=== PATIENT | male | born 1985 | race Caucasian/White ===

== ENCOUNTER 2021-05-18 19:11 | Emergency (ER) | payer OTHER, SELFPAY ==
--- NOTE | ~2021-05-18 | XR_ITS ---
EXAMINATION: XR wrist LT 2V INDICATION: Post reduction TECHNIQUE: Two views of the left wrist are obtained. COMPARISON: 1927 hours FINDINGS: Again seen is a comminuted intra-articular fracture of the distal radius. Dorsal angulation has been partially reduced. A splint has been applied. An ulnar styloid avulsion is noted. IMPRESSION: 1. Partially reduced and splinted comminuted intra-articular fracture of the distal radius. Reviewed, dictated and finalized at location F. MASTER IMPRESSION: 1. Partially reduced and splinted comminuted intra-articular fracture of the di stal radius.
--- NOTE | ~2021-05-18 | CT_ITS ---
EXAMINATION: CT facial bones wo con DATE: 05/18/2021 22:56 INDICATION: Left facial pain, initial encounter TECHNIQUE: Computed tomography (CT) of the facial bones and maxillofacial region was performed withou t intravenous contrast. The dose-length product (DLP) was 288.72 mGy-cm. Automated exposure control a nd iterative reconstruction technique were employed. COMPARISON: None. FINDINGS: There is an acute minimally displaced fracture of the lateral wall of the left orbit. There is a nondisplaced fracture in the inferior wall of the left orbit. There are comminuted and displace d fractures in the anterior and lateral perez of the left maxillary sinus. There is a segmental fract ure of the left zygomatic arch with angulation. There is near complete opacification of the left maxi llary sinus. The visualized portions of the cervical spine are unremarkable. IMPRESSION: 1. Multiple left-sided orbital and facial bone fractures as detailed above. Reviewed, dictated and finalized at location F. OLOGY INSTRUCTOR
--- NOTE | ~2021-05-18 | CT_ITS ---
EXAMINATION: CT brain wo con INDICATION: Head injury COMPARISON: None TECHNIQUE: Standard unenhanced head CT. The dose-length product (DLP) was 605.33 mGy-cm. The mA was a djusted according to patient size. Iterative reconstruction technique was employed. FINDINGS: There is hemorrhagic opacification of the left maxillary sinus with a partially imaged frac ture of the lateral wall. There is also a fracture of the lateral wall of the left orbit. There is no intracranial hemorrhage, acute infarction, or abnormal mass lesion. The ventricles are normal. There is no abnormal mass effect or midline shift. The guillory-white matter differentiation is normal. The ba sandip cisterns are patent. IMPRESSION: 1. No acute intracranial abnormality. 2. Fractures of the lateral wall of the left orbit and lateral wall of the left maxillary sinus. Dedi cated facial bone CT is recommended. Reviewed, dictated and finalized at location F. CH AND BRACELET MAKER IMPRESSION: 1. No acute intracranial abnormality. 2. Fractures of the lateral wall of the left orbit and lateral wall of the left maxillary sinus. Dedicated facial bone CT is recommended.
--- NOTE | ~2021-05-18 | XR_ITS ---
EXAMINATION: XR wrist LT 2V INDICATION: Left wrist pain, initial encounter TECHNIQUE: Two views of the left wrist are obtained. COMPARISON: None available FINDINGS: There is an acute, traumatic, closed, comminuted intra-articular fracture of the distal rad ius. There are approximately 15 degrees of dorsal angulation at the fracture site. There appears to b e an avulsion fracture of the ulnar styloid. No additional acute osseous findings are evident. Wrist soft tissue swelling is present. IMPRESSION: 1. Comminuted intra-articular fracture of the distal radius. 2. Likely ulnar styloid avulsion. Reviewed, dictated and finalized at location F. PICKER
[2021-05-18 19:16] VITALS: BP 165/87; PULSE 119; RESP 20; TEMP 36.9; O2SAT 95
--- NOTE | 2021-05-18 20:20 | ED.UPPEXIN ---
HPI - Extremity Injury (Upper) General Chief Complaint: Fall Stated Complaint: L wrist, head injury Time Seen by Provider: 05/18/21 20:12 Source: patient Mode of arrival: ambulatory Limitations: no limitations History of Present Illness HPI narrative: Patient is a 35-year-old male complaining of left wrist pain, 9 out of 10, dull, worse with palpation and movement after he slipped on ice today landing on his left wrist. Patient states that he did hit his left jaw but his pain is mild, able to open his mouth without difficulty. Patient denies any head, neck, back or any other extremity pain/injury. Patient denies any symptoms prior to the fall. Related Data Allergies Allergy/AdvReac Type Severity Reaction Status Date / Time Honey Bee Allergy Unknown Unknown Uncoded 05/18/21 19:18 Review of Systems Review of Systems: Per HPI All systems reviewed & are unremarkable except as noted in HPI and below [facility] Social History Social History (Updated 03/31/19 @ 16:06 by CARINA Oliveros) Smoking status: Never smoker Comments Past medical history: None Family history: Unknown Social history: Positive for smoker, no EtOH or drug use Exam Const: General: cooperative, healthy appearing, comfortable, no acute distress, well developed, alert and awake; No confusion Orientation/consciousness: oriented to person, oriented to place, oriented to time, patient oriented x3 and No confusion Limitations: no limitations HENMT: Head: normal to inspection, normocephalic and atraumatic Ears: hearing grossly normal bilaterally, TM normal on the right and TM normal on the left General nose exam: Normal external nose present, Normal nares present and No nasal discharge present Face and sinus: normal facial exam Mouth: Yes Normal oral and palatal mucosa present, Yes lip normal, Yes tongue normal and Yes oropharynx normal Throat: posterior oropharynx normal, tonsils normal and uvula midline Eyes: General: appearance normal, both eyes and all related structures Pupils: Equal, round and reactive pupils present EOM: EOMs intact bilaterally Neck: Neck: normal visual inspection, full ROM, no lymphadenopathy and no meningeal signs Chest: Chest palpation & inspection: normal inspection of the chest Resp: Effort & Inspection: normal respiratory effort, able to speak in complete sentences, no respiratory distress and not tachypneic Auscultation: clear to auscultation bilaterally, no crackles, no rales, no rhonchi and no wheezes Cardio: Rate: regular rate Rhythm: regular rhythm GI: Inspection: normal to inspection GI Palp: No abdominal tenderness, Yes Soft to palpation, No Tenderness to palpation present (GI), No Guarding due to palpation present (GI), No Rigid due to palpation and No Rebound tenderness present Auscultation: normal bowel sounds : General: Yes no CVA tenderness Back/Spine/Pelvis: Back: no CVA tenderness Skin: General skin exam: normal color, no rashes or lesions noted, elasticity normal and turgor normal Neuro: General: oriented to person, oriented to place, oriented to time, patient oriented x3, tone normal, moves all extremities, Normal light touch and pain sensation, no meningeal signs, no focal motor deficits, CN's II-XI intact bilaterally and No confusion Cranial nerves: Yes Equal, round and reactive pupils present Speech: No Abnormal speech present Sensory Exam: No Sensory deficit (Neuro) Extrem: Other: Left wrist deformity, decreased range of motion due to pain, pain on palpation, neurovascular is intact Psych: Appearance: grossly normal and well kempt Mental Status: mental status grossly normal Speech and movement: Normal speech and movement present Affect: normal affect Attitude: cooperative Thought process: Normal thought process present Thought content: Yes Normal thought content present Insight: Good insight present (Psych) Judgement: Good judgement present (Psych) Course Vital Signs Vital signs: Vital S
[2021-05-18] MEDS: KETOROLAC 30 MG/ML VIAL (*BKC) IM (21:11)
[2021-05-18] MEDS: diazePAM (*CRX) 5 MG TABLET PO (21:12)
[2021-05-18] MEDS: HYDROcodone/acetaminophen (*CRX) 5-325 MG TABLET 2 TAB PO (21:12)
--- NOTE | 2021-05-18 21:36 | PC.NURSE ---
Patient told this RN you have a nice rack Then proceeded to grab breast. Patient informed about hospital policy and told not to do that again. Diffrent nurse took over care at this point.
[2021-05-18 23:23] VITALS: BP 133/83; PULSE 18; RESP 18; TEMP 36.3; O2SAT 98
[2021-05-18 23:30] VITALS: BP 141/92; PULSE 88; RESP 12; TEMP 36.7; O2SAT 98
[2021-05-19] MEDS: HYDROcodone/acetaminophen (*CRX) 5-325 MG TABLET 1 TAB PO (00:55)
[2021-05-19 00:56] VITALS: BP 120/100; PULSE 82; RESP 18; TEMP 36.6; O2SAT 98
== END 2021-05-19 00:59 | disposition home or self-care (01) ==
PROVIDERS: Emergency Provider Emergency Medicine
DX: S52.572A Other intraarticular fracture of lower end of left radius, initial encounter for closed fracture (principal); S02.842A Fracture of lateral orbital wall, left side, initial encounter for closed fracture; S02.40DA Maxillary fracture, left side, initial encounter for closed fracture; S02.32XA Fracture of orbital floor, left side, initial encounter for closed fracture; S02.40FA Zygomatic fracture, left side, initial encounter for closed fracture; W00.0XXA Fall on same level due to ice and snow, initial encounter
CPT/HCPCS: 25605; 70450; 70486; 73100; 96374; 99285; A4565; A9270; J1885

== ENCOUNTER 2021-09-18 17:16 | Emergency (ER) | payer SELFPAY ==
[2021-09-18 17:26] VITALS: BP 113/73; PULSE 96; RESP 16; TEMP 37.8; O2SAT 99
--- NOTE | 2021-09-18 17:40 | ED.URI ---
HPI - URI/Sore Throat General Chief Complaint: Upper Respiratory Infection Stated Complaint: sore throat Time Seen by Provider: 09/18/21 17:40 History of Present Illness HPI Narrative: 35-year-old male presented for complaint of sore throat for 1 week. Endorses his tongue feels swollen, denies mild sinus drainage. 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 He denies shortness of breath, wheezing, nausea, vomiting, fevers or chills. Denies sick contacts. Related Data Allergies Allergy/AdvReac Type Severity Reaction Status Date / Time Honey Bee Allergy Unknown Unknown Uncoded 09/18/21 17:33 Review of Systems Review of Systems: CONSTITUTIONAL: Denies body aches, fever, chills, or sweats. EYES: Denies visual changes, redness, or discharge. ENT: Denies otalgia. CARDIOVASCULAR: Denies chest pain, palpitations, or edema. RESPIRATORY: Denies dyspnea. GASTROINTESTINAL: Denies abdominal pain, nausea, vomiting, or diarrhea. SKIN: Denies rash, itching, or wounds. MUSCULOSKELETAL: Denies back pain, joint pain, or myalgia. NEUROLOGIC: Denies headache PMFSH Social History Social History Smoking status: Never smoker Exam Narrative: GENERAL: Well-appearing EYES: conjunctivae clear ENT: Mucous membranes moist. TM pearly guillory with normal light reflex bilaterally; no tragal tenderness. Oropharynx erythematous without lesions. No drooling, no hoarseness, no trismus, uvula midline. No tripod positioning, hot potato voice, or soft palate swelling. NECK: Supple. No lymphadenopathy CHEST: Clear to auscultation, breath sounds equal. HEART: Regular rate and rhythm. No murmur heard. SKIN: Warm, dry, no rash. NEURO: Alert and oriented x3. Course Course Emergency Course: Patient is aware of diagnosis, understands and agrees to treatment plan. Anticipatory guidance given. Patient agrees to follow-up as directed and is aware of reasons to seek care at the emergency department. Portions of this record may have been created with voice recognition software Level of Care: Express Care Visit Vital Signs Vital signs: Vital Signs Temperature 100.1 F H 09/18/21 17:26 Pulse Rate 96 09/18/21 17:26 Respiratory Rate 16 09/18/21 17:26 Blood Pressure 113/73 09/18/21 17:26 Pulse Oximetry 99 09/18/21 17:26 Oxygen Delivery Room Air 09/18/21 17:26 Temperature 100.1 F H 09/18/21 17:26 Pulse Rate 96 09/18/21 17:26 Respiratory Rate 16 09/18/21 17:26 Blood Pressure 113/73 09/18/21 17:26 Pulse Oximetry 99 09/18/21 17:26 Oxygen Delivery Room Air 09/18/21 17:26 MDM - URI/Sore Throat MDM Narrative Medical decision making narrative: negative strep result reviewed with pt. Advise supportive treatments. Patient is appropriate for outpatient treatment and follow-up. Differential Diagnosis Differential diagnosis: Likely upper respiratory infection, viral infection and pharyngitis Lab Data Labs: Strep Screen Presumptive Negative *(Reference Range: Negative)* Discharge Plan Discharge Clinical Impression: Pharyngitis Qualifiers: Pharyngitis/tonsillitis etiology: unspecified etiology Qualified Code(s): J02.9 - Acute pharyngitis, unspecified Patient Disposition: Home, Self-Care Condition: Stable Instructions: Antibiotic Form, Pharyngitis (ED) Additional Instructions: Rapid strep swab was negative today You will be notified in a few days if the culture comes back positive for strep, and appropriate antibiotics will be called in at that time. if symptoms are due to a viral illness, it is not treated with antibiotics. Viral symptoms can be present for up to 10-14 days. Recommend Flonase spray and Zyrtec for sinus congestion Tylenol 1000mg every 8 hours as needed for pain/fever Soft foods, cool liquids, warm tea. Gargle wi
== END 2021-09-18 18:10 | disposition home or self-care (01) ==
PROVIDERS: Emergency Provider Nurse Practitioner Family
DX: J02.9 Acute pharyngitis, unspecified (principal)
CPT/HCPCS: 87081; 87880; 99213; G0463

== ENCOUNTER 2021-10-16 08:38 | Emergency (ER) | payer SELFPAY ==
--- NOTE | ~2021-10-16 | XR_ITS ---
EXAMINATION: XR soft tissue neck INDICATION: Sore throat TECHNIQUE: Two views of the neck soft tissues are obtained. COMPARISON: 02/05/2005 FINDINGS: The neck soft tissues are radiographically unremarkable. The prevertebral soft tissues are normal. The cervical spine is normal. An impacted molar is noted. IMPRESSION: 1. Unremarkable neck soft tissues Reviewed, dictated and finalized at location B.
[2021-10-16 08:47] VITALS: BP 124/72; PULSE 85; RESP 16; TEMP 36.1; O2SAT 100
--- NOTE | 2021-10-16 08:47 | ED.URI ---
HPI - URI/Sore Throat General Chief Complaint: Upper Respiratory Infection Stated Complaint: sore throat Time Seen by Provider: 10/16/21 08:50 History of Present Illness HPI Narrative: 35-year-old male presented for complaint of throat pain for over 1 month. Was seen at [facility] 09/18 for the same complaint, negative strep at that time. Advised to f/u with PCP but has yet to establish. Endorses pain with swallowing solid foods, worse in the morning, rates 5/10. Has been using the supportive measures without significant improvement. Denies sinus congestion/drainage, wheezing, sob, fever or chills. Also c/o burning with urination for 3 days. Endorses unprotected sex but denies known exposure. Denies associated urethral discharge, lesions, hematuria, abdominal pain, nausea, or vomiting. Related Data Allergies Allergy/AdvReac Type Severity Reaction Status Date / Time Honey Bee Allergy Unknown Unknown Uncoded 10/16/21 08:44 Review of Systems Review of Systems: CONSTITUTIONAL: Denies body aches, fever, chills, or sweats. EYES: Denies visual changes, redness, or discharge. ENT: Denies rhinorrhea, congestion, or otalgia. CARDIOVASCULAR: Denies chest pain, palpitations, or edema. RESPIRATORY: Denies dyspnea. GASTROINTESTINAL: Denies abdominal pain, nausea, vomiting, or diarrhea. SKIN: Denies rash, itching, or wounds. MUSCULOSKELETAL: Denies back pain, joint pain, or myalgia. NEUROLOGIC: Denies headache PMFSH Social History Social History Smoking status: Never smoker Exam Narrative: GENERAL:well-appearing EYES: conjunctivae clear ENT: Mucous membranes moist. TMs pearly guillory with normal light reflex bilaterally; no tragal tenderness. Oropharynx erythematous without lesions, Tonsils enlarged and without exudate. No drooling, no hoarseness, no trismus, uvula midline. No tripod positioning, hot potato voice, or soft palate swelling. NECK: Supple. No lymphadenopathy CHEST: Clear to auscultation, breath sounds equal. No respiratory distress, speaks in full sentences. HEART: Regular rate and rhythm. No murmur heard. SKIN: Warm, dry, no rash. NEURO: Alert and oriented x3. Course Course Emergency Course: Patient is aware of diagnosis, understands and agrees to treatment plan. Anticipatory guidance given. Patient agrees to follow-up as directed and is aware of reasons to seek care at the emergency department. Portions of this record may have been created with voice recognition software Level of Care: Express Care Visit Vital Signs Vital signs: Vital Signs Temperature 97.0 F L 10/16/21 08:47 Pulse Rate 85 10/16/21 08:47 Respiratory Rate 16 10/16/21 08:47 Blood Pressure 124/72 10/16/21 08:47 Pulse Oximetry 100 10/16/21 08:47 Oxygen Delivery Room Air 10/16/21 08:47 Temperature 97.0 F L 10/16/21 08:47 Pulse Rate 85 10/16/21 08:47 Respiratory Rate 16 10/16/21 08:47 Blood Pressure 124/72 10/16/21 08:47 Pulse Oximetry 100 10/16/21 08:47 Oxygen Delivery Room Air 10/16/21 08:47 MDM - URI/Sore Throat MDM Narrative Medical decision making narrative: soft tissue neck xray negative, reviewed results with pt. Advised to f/u with pcp, ent/GI for further evaluation if symptoms persist. Rx steroid for tonsillitis. Patient also presenting with concern for STD. Urine specimen collected for GC, chlamydia, trich. Informed Pt will be contacted w/ results when they become available if they are positive. Discussed with patient that it takes up to 7 days for results of cultures to be released and explained that we may treat empirically at this time. Agreeable to treatment at this time. I have instructed the patient to return to the ER at any time if there are any new or worsening symptoms. The patient expressed understanding of and agreement with this plan. Advise supportive treatments. Patient is appropriate for outpatient treatment and fol
[2021-10-16] MEDS: cefTRIAXone 500 MG, LIDOCAINE HCL 1% LOCAL INJ 1 ML IM (09:38)
== END 2021-10-16 09:50 | disposition home or self-care (01) ==
PROVIDERS: Emergency Provider Nurse Practitioner Family
DX: J02.9 Acute pharyngitis, unspecified (principal); Z20.2 Contact with and (suspected) exposure to infections with a predominantly sexual mode of transmission
CPT/HCPCS: 70360; 81003; 87491; 87591; 87661; 96372; 99213; G0463; J0696

== ENCOUNTER 2022-01-22 16:49 | Emergency (ER) | payer SELFPAY ==
[2022-01-22 16:53] VITALS: BP 120/70; PULSE 89; RESP 16; TEMP 36.6; O2SAT 97
--- NOTE | 2022-01-22 16:53 | ED.SKABFB ---
HPI - Skin/Abscess/Foreign Bdy General Chief complaint: Skin/Abscess/Foreign Body Stated complaint: tick bite Time Seen by Provider: 01/22/22 16:59 Source: patient and RN notes reviewed Mode of arrival: ambulatory Limitations: no limitations History of Present Illness HPI narrative: 36-year-old male presents to the [facility] with a red area with a white choctaw around it that he noticed under his right arm. States this started last night. No treatment prior to arrival. Has acne on his back. No erythema edema surrounding area. One acne area was scratched, scab in please less than 0.5 cm. No bull's-eye rash noted. No bug bites. Related Data Allergies Allergy/AdvReac Type Severity Reaction Status Date / Time Honey Bee Allergy Unknown Unknown Uncoded 10/16/21 08:44 Review of Systems Review of Systems: All systems reviewed & are unremarkable except as noted in HPI and below Constitutional: Constitutional: Reports no additional constitutional complaints, Denies chills and Denies fever(s) Eyes: Eyes: Reports no additional eye complaints ENT: Reports system reviewed and no additional complaints, except as documented Cardiovascular: Cardiovascular: Reports no additional cardiovascular complaints Respiratory: Respiratory: Reports no additional respiratory complaints Gastrointestinal: Gastrointestinal: Reports no additional gastrointestinal complaints Musculoskeletal: Musculoskeletal: Reports no additional musculoskeletal complaints Integumentary/Breasts: Skin/Breast: Reports as per HPI Neurologic: Reports system reviewed and no additional complaints, except as documented Psychiatric: Psychiatric: Reports no additional psychiatric complaints Allergic/Immunologic: Allergic/Immunologic: Reports no additional allergic/immunologic complaints PMFSH Past Medical History Medical History (Updated 01/22/22 @ 20:37 by Annette Shipley APRN) Patient denies medical problems Surgical History Surgical History (Updated 01/22/22 @ 20:35 by Annette Shipley APRN) No pertinent past surgical history Social History Social History Smoking status: Never smoker Comments At the time of my signature, I reviewed and agree with the nursing past medical, surgical, social, and family history. There is no relevant family history pertinent to the patient complaint. Exam Const: General: healthy appearing, no acute distress, alert and well nourished Nutritional Appearance: well nourished Orientation/consciousness: patient oriented x3 Limitations: no limitations HENMT: Head: normal to inspection Ears: external ears normal Face/Nose/Sinus: Normal external nose present and Normal nares present Face and sinus: normal facial exam Mouth: Yes Normal oral and palatal mucosa present, Yes lip normal and Yes moist mucous membranes Throat: posterior oropharynx normal and uvula midline Eyes: General: appearance normal, both eyes and all related structures Conjunctivae: conjunctivae normal Pupils: Equal, round and reactive pupils present Neck: Neck: normal visual inspection, no lymphadenopathy and no meningeal signs Chest: Chest palpation & inspection: normal inspection of the chest Resp: Effort & Inspection: normal respiratory effort and no use of accessory muscles Auscultation: clear to auscultation bilaterally, no crackles, no rales, no rhonchi and no wheezes Cardio: Rate: regular rate Rhythm: regular rhythm GI: GI Palp: Yes Soft to palpation and No Tenderness to palpation present (GI) Skin: General skin exam: normal color Rashes: no rashes Wounds: no wounds Other: Red raise acne bumps on back and sides bilateral. No increased erythema. No bull's eye rash. Neuro: General: patient oriented x3, moves all extremities, no meningeal signs and no focal motor deficits Cranial nerves: Yes Equal, round and reactive pupils present Speech: normal speech Gait exam (Neuro): Normal gait
== END 2022-01-22 17:14 | disposition home or self-care (01) ==
PROVIDERS: Emergency Provider Nurse Practitioner
DX: L70.9 Acne, unspecified (principal)
CPT/HCPCS: 99213; G0463

== ENCOUNTER 2022-12-29 17:42 | Emergency (ER) | payer SELFPAY ==
--- NOTE | ~2022-12-29 | CT_ITS ---
EXAMINATION: CT brain wo con DATE: 12/29/2022 18:47 INDICATION: pain in head/dizzy . TECHNIQUE: Computed tomography (CT) of the head was performed without intravenous contrast. The mA wa s adjusted according to patient size. Iterative reconstruction technique was employed. The dose-lengt h product was 605.33 mGy-cm. COMPARISON: 05/18/2021. FINDINGS: No acute intracranial hemorrhage or extra-axial fluid collection. No hydrocephalus, mass, or herniation. No acute ischemic infarct. Unremarkable dural venous sinus attenuation. No acute osseous abnormality. Old left lateral orbital wall fracture. The aerated spaces are clear. IMPRESSION: No acute intracranial process. Reviewed, dictated and finalized at location K.
[2022-12-29 17:43] VITALS: BP 161/93; PULSE 95; RESP 18; TEMP 36.7; O2SAT 99
--- NOTE | 2022-12-29 18:02 | ED.ANXIETY ---
HPI - Anxiety General Chief Complaint: Anxiety Stated Complaint: anxiety Time Seen by Provider: 12/29/22 18:01 Source: patient Mode of arrival: ambulatory Limitations: no limitations History of Present Illness HPI narrative: Patient is a 37-year-old male who denies past medical hx who presents emergency department today ambulatory with a steady gait her parents cell for evaluation of a having increasing anxiety, feeling and numb sensation over his head, headache, and just feeling off. States he was worried about driving here today no fevers but make it. Denies any new medication changes. He did try to take Excedrin which did not help. He states that he has had headaches before after having a periorbital fracture around a year ago. He did follow-up with neurologist but did not do their recommendations. He denies any recent exposure to any illness or flu. He denies chest pain or shortness of breath. Denies nausea, vomiting melena, fever, chills, urinary symptoms, or any other symptoms. denies drug/alcohol or tobacco use. Related Data Allergies Allergy/AdvReac Type Severity Reaction Status Date / Time Honey Bee Allergy Unknown Unknown Uncoded 10/16/21 08:44 Review of Systems Review of Systems: CONSTITUTIONAL: Denies fever, chills, or sweats. EYES: Denies visual changes, redness, or discharge. ENT: Denies rhinorrhea, congestion, sore throat, or otalgia. CARDIOVASCULAR: Denies chest pain, palpitations, or edema. RESPIRATORY: Denies cough or dyspnea. GASTROINTESTINAL: Denies abdominal pain, nausea, vomiting, or diarrhea. GENITOURINARY: Denies dysuria or hematuria. SKIN: Denies rash or itching. MUSCULOSKELETAL: Denies back pain, joint pain, or myalgia. NEUROLOGIC:+ headache/dizziness, feeling numb sensation over his head. denies weakness. PSYCHIATRIC: +anxiety. denies depression. All systems reviewed & are unremarkable except as noted in HPI and below PMFSH Past Medical History Medical History Patient denies medical problems Surgical History Surgical History No pertinent past surgical history Social History Social History Smoking status: Never smoker Exam Narrative: GENERAL: Well-appearing, well-nourished, and in no acute distress. HEAD: Normocephalic, atraumatic. EYES: PERRLA and EOMI. ENT: Nares clear, no rhinorrhea or epistaxis. Mucous membranes moist. NECK: Supple. CHEST: Clear to auscultation. No respiratory distress. HEART: Regular rate and rhythm. No murmur heard. Normal peripheral pulses. ABDOMEN: Soft, nontender, nondistended, normal active bowel sounds. EXTREMITIES: Normal range of motion. No edema. SKIN: Warm, dry, no rash. NEURO: No focal deficits. Alert and oriented x3. CN II-XII grossly intact. UE and LE distal pulses, sensation, cap refill, temperature, patellar reflex and strength intact and equal bilaterally.?steady gait. negative Romberg PSYCH: Normal mood and affect. Course Vital Signs Vital signs: Vital Signs Temperature 98.1 F 12/29/22 17:43 Pulse Rate 95 12/29/22 17:43 Respiratory Rate 18 12/29/22 17:43 Blood Pressure 161/93 H 12/29/22 17:43 Pulse Oximetry 99 12/29/22 17:43 Oxygen Delivery Room Air 12/29/22 17:43 Temperature 98.1 F 12/29/22 17:43 Pulse Rate 82 12/29/22 21:32 Respiratory Rate 16 12/29/22 21:32 Blood Pressure 120/86 12/29/22 21:32 Pulse Oximetry 100 12/29/22 21:32 Oxygen Delivery Room Air 12/29/22 17:43 MDM - Anxiety MDM Narrative Medical decision making narrative: presents to the emergency department for headache/dizziness/anxiety. Patient is hemodynamically stable. No focal neurological or cranial nerve deficits on exam. No meningeal signs. The headache was gradual in onset, it is not exertional and does not appear consistent with subarachnoid he
[2022-12-29] MEDS: SODIUM CHLORIDE 0.9% IV 1,000 ML 999 ML IV CONT (19:07)
[2022-12-29] MEDS: KETOROLAC 30 MG/ML VIAL (*BKC) IV PUSH (19:09)
[2022-12-29] MEDS: ONDANSETRON INJ 4 MG/2 ML VIAL IV PUSH (19:09)
[2022-12-29] MEDS: diphenhydrAMINE HCl INJ 50 MG/ML VIAL 25 MG IV PUSH (19:10)
[2022-12-29 19:13] LABS: Basophils Absolute Auto 0.1 K/mm3 (0.0-0.1); Basophils Percent Auto 0.5 % (0.2-1.2); Eosinophils Absolute Auto 0.1 K/mm3 (0-0.3); Eosinophils Percent Auto 0.7 % (0-4.4); Hematocrit 44.6 % (42.0-52.0); Hemoglobin 15.6 g/dL (14.0-18.0); Immature Granulocyte Absolute 0.01 K/mm3 (0.00-0.031); Immature Granulocyte Percent A 0.1 % (0-0.5); Lymphocytes Absolute Auto 1.46 K/mm3 (0.9-3.2); Lymphocytes Percent Auto 14.7 % (18.3-44.2); Mean Corpuscular Hemoglobin 30.1 pg (26-34); Mean Corpuscular Volume 85.9 fl (80-100); Mean Platelet Volume 10.3 fl (7.4-10.4); Monocytes Absolute Auto 0.8 K/mm3 (0.1-0.6); Monocytes Percent Auto 7.5 % (2.6-8.5); Neutrophils Absolute Auto 7.6 K/mm3 (1.3-6.7); Neutrophils Percent Auto 76.5 % (45.5-73.1); Platelet Count Result 204 k/mm3 (150-375); Red Blood Count 5.19 M/mm3 (4.6-6.20); Red Cell Distribution Width 11.5 % (11.5-14.5)
[2022-12-29 19:14] LABS: Appearance Urine Clear (Clear); Bilirubin Urine Negative (Negative); Blood Urine Negative (Negative); Color Urine Yellow (Yellow); Glucose Urine UA Negative (Negative); Ketones Urine Trace mg/dL (Negative); Leukocyte Esterase Ur Negative LEU/UL (Negative); Nitrate Urine Negative (Negative); Protein Urine Negative (Negative); Specific Grav Ur <= 1.005 (1.001-1.035); Urobilinogen Urine 0.2 mg/dL (<2.0); pH Urine 5.5 (5.0-9.0)
[2022-12-29 19:15] LABS: Add Urine Microscopic? NO
[2022-12-29 19:26] LABS: Alanine Aminotransferase 33 U/L (6-50); Albumin Level 4.4 g/dL (3.5-5.1); Alkaline Phosphatase 63 U/L (38-126); Anion Gap 8 mmol/L (8-16); Aspartate Amino Transferase 30 U/L (17-59); Bilirubin,Total 0.6 mg/dL (0.2-1.3); Blood Urea Nitrogen 14 mg/dL (9-20); Calcium 9.1 mg/dL (8.4-10.2); Carbon Dioxide 28 mmol/L (22-30); Chloride 101 mmol/L (98-107); Estimated CRCL calculation 91 ml/min; Estimated Glomerular Filt Rate > 60; Glucose 102 mg/dL (65-110); Magnesium 1.7 mg/dL (1.6-2.3); Potassium 3.8 mmol/L (3.4-5.0); Sodium 137 mmol/L (137-145)
[2022-12-29 19:49] VITALS: BP 136/94; PULSE 88; RESP 16; O2SAT 98
[2022-12-29 20:53] VITALS: BP 126/76; PULSE 90; RESP 15; O2SAT 100
[2022-12-29 21:03] LABS: Amphetamine Screen Urine Negative (Negative); Barbiturate Screen Urine Negative (Negative); Benzodiazepines Screen Urine Negative (Negative); Cannabinoid Screen Urine Negative (Negative); Cocaine Screen Urine Negative (Negative); Methadone Screen Urine Negative (Negative); Opiate Screen Urine Negative (Negative); Phencyclidine Screen Urine Negative (Negative)
[2022-12-29 21:32] VITALS: BP 120/86; PULSE 82; RESP 16; O2SAT 100
== END 2022-12-29 21:32 | disposition home or self-care (01) ==
PROVIDERS: Emergency Provider Nurse Practitioner
DX: F41.9 Anxiety disorder, unspecified (principal); R51.9 Headache, unspecified; R42 Dizziness and giddiness
CPT/HCPCS: 36415; 70450; 80053; 80307; 81003; 83735; 85025; 96361; 96374; 96375; 99284; J1200; J1885; J2405; J7030